=== PATIENT | female | born 1990 | race Caucasian/White ===

== ENCOUNTER 2016-04-26 08:49 | Emergency (ER) | payer SELFPAY ==
[~2016-04-26] VITALS: Ht 162.6 cm; Wt 81.6 kg
--- NOTE | 2016-04-26 08:49 | NUR ---
Patient BIBA and taken to bed 04 via gurney per EMS.
[2016-04-26 08:54] VITALS: BP 112/71
--- NOTE | 2016-04-26 08:54 | NUR ---
PATIENT JAYSHREE PRESENTS TO ED WITH CHRONIC LOW BACK PAIN X2 YRS. TWISTED TODAY AT WORK; DENIES N/V/D; SKIN IS PINK/WARM/DRY; AAOX4 WITH EVEN AND STEADY GAIT; LUNGS CLEAR BL; HR EVEN AND REGULAR; PT DENIES ANY FEVER, CP, SOB, OR COUGH AT THIS TIME; PATIENT STATES PAIN OF 7/10 AT THIS TIME; VSS; PATIENT POSITIONED FOR COMFORT; HOB ELEVATED; BEDRAILS UP X2; BED DOWN. ER MD MADE AWARE OF PT STATUS.
--- NOTE | 2016-04-26 08:57 | NUR ---
DR LONG ASSESSING AAO PT AT BEDSIDE
--- NOTE | 2016-04-26 08:58 | NUR ---
Dr. Lackey evaluating patient at bedside.
[2016-04-26] MEDS ORDERED: HYDROmorphone 1 MG/ML AMP ONE (09:10)
--- NOTE | 2016-04-26 09:12 | NUR ---
1 MG DILAUDED GIVEN IM PER DR LONG'S ORDER LOW BACK PAIN 09/20
--- NOTE | 2016-04-26 09:27 | NUR ---
LOW BACK PAIN IS 4/10 PER PT AFTER DILAUDED
[2016-04-26] MEDS ORDERED: HYDROmorphone 1 MG/ML AMP IM ONE ×2 (09:30→09:50)
--- NOTE | 2016-04-26 09:40 | NUR ---
AAO PT C/O PAIN 12/21 WHEN MOVING TO THE WHEELCHAIR, DR LONG NOTIFIED
[2016-04-26 10:00] VITALS: BP 116/66
--- NOTE | 2016-04-26 10:00 | NUR ---
Patient discharged with v/s stable. Written and verbal after care instructions given and explained. Patient alert, oriented and verbalized understanding of instructions. Wheel Chair Assisted with to car. All questions addressed prior to discharge. ID band removed. Patient advised to follow up with PMD. Rx of NORCO given. Patient educated on indication of medication including possible reaction and side effects. Opportunity to ask questions provided and answered.
== END 2016-04-26 10:00 | disposition home or self-care (01) ==
LOC: MED 08:49
DX: M54.5 Low back pain (principal); G89.29 Other chronic pain
CPT/HCPCS: 96372; 99284; J1170

== ENCOUNTER 2016-07-13 22:35 | Emergency (ER) | payer OTHER ==
[~2016-07-13] VITALS: Ht 162.6 cm; Wt 82.1 kg
[2016-07-13 22:44] VITALS: BP 144/90
--- NOTE | 2016-07-13 23:50 | NUR ---
PT TAKEN TO BED 5
--- NOTE | 2016-07-14 00:21 | NUR ---
PATIENT PRESENTS TO ED WITH C/O TOOTHACHE . PT DENIES N/V/D; SKIN IS PINK/WARM/DRY; AAOX4 WITH EVEN AND STEADY GAIT; LUNGS CLEAR BL; HR EVEN AND REGULAR; PT DENIES ANY FEVER, CP, SOB, OR COUGH AT THIS TIME; PATIENT STATES PAIN OF 10/10 AT THIS TIME; VSS; PATIENT POSITIONED FOR COMFORT; HOB ELEVATED; BEDRAILS UP X2; BED DOWN. ER MD MADE AWARE OF PT STATUS.
--- NOTE | 2016-07-14 00:26 | NUR ---
Dr. Robles evaluating patient at bedside.
[2016-07-14] MEDS ORDERED: KETOROLAC 60 MG/2 ML VIAL IM ONE (00:30)
--- NOTE | 2016-07-14 01:06 | NUR ---
Patient appears to be resting comfortably in bed. Vital Signs within normal limits. Respirations even and unlabored.
[2016-07-14 01:15] VITALS: BP 132/85
--- NOTE | 2016-07-14 01:16 | NUR ---
Patient discharged with v/s stable. Written and verbal after care instructions given and explained. Patient alert, oriented and verbalized understanding of instructions. Ambulatory with to car. All questions addressed prior to discharge. ID band removed. Patient advised to follow up with PMD. Rx of NORCO 5-MG325, MOTRIN 800MG given. Patient educated on indication of medication including possible reaction and side effects. Opportunity to ask questions provided and answered.
== END 2016-07-14 01:16 | disposition home or self-care (01) ==
LOC: MED 22:35
DX: K08.89 Other specified disorders of teeth and supporting structures (principal); F17.200 Nicotine dependence, unspecified, uncomplicated
CPT/HCPCS: 96372; 99283; J1885

== ENCOUNTER 2016-08-27 13:36 | Emergency (ER) | payer OTHER ==
[~2016-08-27] VITALS: Ht 162.6 cm; Wt 81.6 kg
[2016-08-27 13:42] VITALS: BP 118/72
--- NOTE | 2016-08-27 13:47 | NUR ---
Patient ambulated to bed 4. RN evaluating patient at bedside.
--- NOTE | 2016-08-27 13:47 | NUR ---
PT PRESENTS TO ER W/C/O DIARRHEA SINCE THIS AM. PT DENIES ANY MEDICAL HX. DENIES DIARRHEA; SKIN IS PINK/WARM/DRY; AAOX4 WITH EVEN AND STEADY GAIT; LUNGS CLEAR BL; HR EVEN AND REGULAR; PT DENIES ANY FEVER, CP, SOB, OR COUGH AT THIS TIME; PATIENT STATES ABDOMINAL CRAMPING PAIN OF 4/10 AT THIS TIME; VSS; PATIENT POSITIONED FOR COMFORT; HOB ELEVATED; BEDRAILS UP X2; BED DOWN. ER MD MADE AWARE OF PT STATUS.
--- NOTE | 2016-08-27 13:48 | NUR ---
Dr. Carson evaluating patient at bedside.
[2016-08-27] MEDS ORDERED: cefTRIAXone 250 MG in LIDOCAINE 1% ED 0.9 ML IM ONE (14:00)
[2016-08-27] MEDS ORDERED: AZITHROMYCIN 250 MG TAB PO ONE (14:00)
[2016-08-27 14:51] LABS: APPEARANCE,URINE CLEAR (CLEAR); BILIRUBIN,URINE NEGATIVE (NEGATIVE); BLOOD, URINE NEGATIVE (NEGATIVE); COLOR,URINE YELLOW (YELLOW); LEUKOCYTE ESTERASE ,URINE 1+ (NEGATIVE); NITRITE, URINE NEGATIVE (NEGATIVE); PH,URINE 5.5 (5.0-9.0); PROTEIN,URINE NEGATIVE (NEGATIVE); UGLUCOSE NEGATIVE (NEGATIVE); UROBILINOGEN,URINE 0.2 EU/dL (0.2 - 1)
[2016-08-27 15:05] VITALS: BP 104/58
[2016-08-27 15:12] LABS: RBC,URINE 0-3 /HPF (0-5); WBC,URINE 0-5 /HPF (0-5)
[2016-08-27 15:13] LABS: BACTERIA,URINE RARE /HPF (None Seen); SQUAMOUS EPITHELIAL CELL,UR 0-5 /LPF (0-3 (FEW))
[2016-08-31 06:26] LABS: CHLAMYDIA TRACHOMATIS AMP DNA Negative (Negative)
== END 2016-08-27 15:05 | disposition home or self-care (01) ==
LOC: MED 13:36
DX: R19.7 Diarrhea, unspecified (principal); Z20.2 Contact with and (suspected) exposure to infections with a predominantly sexual mode of transmission
CPT/HCPCS: 36415; 81001; 81025; 87086; 87491; 96372; 99284; J0696; J2001

== ENCOUNTER 2016-08-31 08:33 | Emergency (ER) | payer OTHER ==
[~2016-08-31] VITALS: Ht 162.6 cm; Wt 79.6 kg
[2016-08-31 08:42] VITALS: BP 124/66
--- NOTE | 2016-08-31 10:10 | NUR ---
Patient ambulated to bed 8. RN evaluating patient at bedside.
--- NOTE | 2016-08-31 10:15 | NUR ---
26F BIB SELF C/O DIARRHEA X 6 DAYS; PT STATES HAD 3 EPISODES OF DIARRHEA TODAY, BUT STATES NO NAUSEA/VOMITTING AT THIS TIME; ABDOMEN SOFT, NON-TENDER, ACTIVE BOWEL SOUNDS X 4 QUADRANTS. PT NOTED W/ SMALL HEALING ABRASION TO NOSE; NO BLEEDING OR C/O PAIN TO SITE AT THIS TIME; PT STATES NO PAIN AT THIS TIME; PT AA&OX4, PERRLA, BL LUNG SOUNDS CLEAR, RR EVEN/UNLABORED, SKIN IS WARM/DRY AT THIS TIME; PT RESTING IN BED W/ HOB ELEVATED AND IN LOWEST POSITION; POSITIONED FOR COMFORT; ER MD MADE AWARE OF STATUS. WILL CONTINUE TO MONITOR.
--- NOTE | 2016-08-31 10:30 | NUR ---
Note magui in EDM - 08/31/16 at 1032 by LOIS Patient will be admitted to care of DR. FLORES. Admited to TELE. Will go to room 105-A. [facility] list completed. Report to JERROD BARCENAS.
--- NOTE | 2016-08-31 10:41 | NUR ---
ER MD DR. MONTERO EVALUATING PT AT BEDSIDE.
[2016-08-31 10:51] VITALS: BP 115/75
--- NOTE | 2016-08-31 10:51 | NUR ---
Patient discharged with v/s stable. Written and verbal after care instructions given and explained. Patient alert, oriented and verbalized understanding of instructions. Ambulatory with steady gait. All questions addressed prior to discharge. ID band removed. Patient advised to follow up with PMD. Rx of LOMOTIL 2.5MG-0.025MG TAB given. Patient educated on indication of medication including possible reaction and side effects. Opportunity to ask questions provided and answered.
== END 2016-08-31 10:51 | disposition home or self-care (01) ==
LOC: MED 08:34
DX: R19.7 Diarrhea, unspecified (principal)
CPT/HCPCS: 81002; 81025; 99283

== ENCOUNTER 2016-09-05 15:50 | Emergency (ER) | payer OTHER ==
[~2016-09-05] VITALS: Ht 162.6 cm; Wt 77.1 kg
[2016-09-05 15:55] VITALS: BP 128/60
--- NOTE | 2016-09-05 16:46 | NUR ---
PT AMBULATED TO ER BED 06.
[2016-09-05] MEDS ORDERED: NACL 0.9% 1,000 ML IV SCH (16:47)
--- NOTE | 2016-09-05 16:48 | NUR ---
PATIENT PRESENTS TO ED WITH C/O N/D X 7 TODAY, LAST ONE 30 MIN AGO, HAD THE SAME PROBLEMS ON AND OFF FOR 2 WKS;SKIN IS PINK/WARM/DRY; AAOX4 WITH EVEN AND STEADY GAIT; LUNGS CLEAR BL; HR EVEN AND REGULAR; PT DENIES ANY FEVER, CP, SOB, OR COUGH AT THIS TIME; PATIENT STATES PAIN OF 8/10 AT THIS TIME; VSS; PATIENT POSITIONED FOR COMFORT; HOB ELEVATED; BEDRAILS UP X2; BED DOWN.
[2016-09-05] MEDS ORDERED: ONDANSETRON 4 MG/2 ML VIAL IVP ONE (16:50)
[2016-09-05] MEDS ORDERED: DIPHENOXYLATE /ATROPINE 2.5 MG TAB PO ONE (16:50)
[2016-09-05] MEDS ORDERED: NACL 0.9% 1,000 ML IV ONE (16:50)
[2016-09-05 17:17] LABS: BASOPHILS # (AUTO) 0.2 K/uL (0.00-0.22); BASOPHILS % (AUTO) 2.4 % (0.0-2.0); EOSINOPHILS # (AUTO) 0.2 K/uL (0-0.4); EOSINOPHILS % (AUTO) 2.3 % (0.0-4.0); HEMATOCRIT 41.4 % (36-48); HEMOGLOBIN 14.1 g/dL (12.0-16.0); LYMPHOCYTES # (AUTO) 1.2 K/uL (2.5-16.5); LYMPHOCYTES % (AUTO) 13.8 % (20.5-51.1); MEAN CORPUSCULAR HEMOGLOBIN 32 pg (27-31); MEAN CORPUSCULAR HGB CONC 34 g/dL (33-37); MEAN CORPUSCULAR VOLUME 95 fL (80-94); MONOCYTES # (AUTO) 0.4 K/uL (0.8-1.0); MONOCYTES % (AUTO) 5.1 % (1.7-9.3); NEUTROPHILS # (AUTO) 6.4 K/uL (1.8-7.7); NEUTROPHILS % (AUTO) 76.4 % (42.2-75.2); PLATELET COUNT (AUTO) 118 K/uL (140-450); RED BLOOD CELL COUNT(AUTO) 4.37 MIL/uL (4.20-5.40); RED CELL DISTRIBUTION WIDTH 12.3 % (11.6-13.7); WHITE BLOOD COUNT (AUTO) 8.4 K/uL (4.8-10.8)
[2016-09-05 17:29] LABS: ALBUMIN 3.6 g/dL (3.4-5.0); ANION GAP 13.6 (8-16); CALCIUM 8.1 mg/dL (8.5-10.1); CARBON DIOXIDE 23.8 mmol/L (21-32); CREATININE 0.6 mg/dL (0.6-1.3); POTASSIUM 3.4 mmol/L (3.5-5.1); TOTAL BILIRUBIN 0.4 mg/dL (0.0-1.0); TOTAL PROTEIN, SERUM 7.3 g/dL (6.4-8.2)
--- NOTE | 2016-09-05 17:34 | NUR ---
pt sleeping;no acute distress noted;
[2016-09-05 17:52] LABS: APPEARANCE,URINE SL CLOUDY (CLEAR); BILIRUBIN,URINE NEGATIVE (NEGATIVE); BLOOD, URINE 1+ (NEGATIVE); COLOR,URINE YELLOW (YELLOW); LEUKOCYTE ESTERASE ,URINE NEGATIVE (NEGATIVE); NITRITE, URINE NEGATIVE (NEGATIVE); PH,URINE 5.5 (5.0-9.0); PROTEIN,URINE TRACE (NEGATIVE); UGLUCOSE NEGATIVE (NEGATIVE); UROBILINOGEN,URINE 0.2 EU/dL (0.2 - 1)
--- NOTE | 2016-09-05 18:03 | NUR ---
PT RESTING ON BED;MALORIE FERMÍNE DISTRESS NOTED;WILL CONTINUE TO MONITOR PT.
[2016-09-05 18:22] LABS: RBC,URINE 3-10 (FEW) /HPF (0-5)
[2016-09-05 18:23] LABS: BACTERIA,URINE 1+ /HPF (None Seen); SQUAMOUS EPITHELIAL CELL,UR >10 (MANY) /LPF (0-3 (FEW))
--- NOTE | 2016-09-05 18:40 | NUR ---
Patient discharged with v/s stable. Written and verbal after care instructions given and explained. Patient alert, oriented and verbalized understanding of instructions. Ambulatory with steady gait. All questions addressed prior to discharge. ID band removed. Patient advised to follow up with PMD. Rx of FLAGYL,TYLENOL AND BENTYL given. Patient educated on indication of medication including possible reaction and side effects. Opportunity to ask questions provided and answered.
[2016-09-05 18:42] VITALS: BP 116/62
== END 2016-09-05 18:40 | disposition home or self-care (01) ==
LOC: MED 15:50
DX: A08.4 Viral intestinal infection, unspecified (principal); Z71.6 Tobacco abuse counseling
CPT/HCPCS: 36415; 80053; 81001; 81025; 82150; 83690; 85025; 87086; 89055; 96361; 96374; 99284; J2405; J7030

== ENCOUNTER 2016-12-23 05:40 | Emergency (ER) | payer OTHER ==
[~2016-12-23] VITALS: Ht 162.6 cm; Wt 80.7 kg
[2016-12-23 05:45] VITALS: BP 114/66
--- NOTE | 2016-12-23 05:50 | NUR ---
PT TAKEN TO BED 5
--- NOTE | 2016-12-23 05:55 | NUR ---
26 Y/F PT. PRESENTS TO W/C/O R UPPER ABD PAIN/NAUSEA/AND SORETHROAT X 45 MINUTES AGO. NO MED HX. AAO X4, AMBULATORY WITH STEADY GAIT. RESPIRATIONS ROOM AIR, EVEN AND UNLABORED. BL LUNG CLEAR. SKIN WARM AND DRY. ABDOMEN SOFT AND NON-TENDER. C/O PAIN 08/21. VSS, ER MADE AWARE OF PT. STATUS.
--- NOTE | 2016-12-23 05:57 | NUR ---
Patient being evaluated by DR. OVIEDO at bedside.
[2016-12-23 06:09] VITALS: BP 110/70
--- NOTE | 2016-12-23 06:09 | NUR ---
Patient discharged with v/s stable. Written and verbal after care instructions given and explained. Patient alert, oriented and verbalized understanding of instructions. Ambulatory with steady gait. All questions addressed prior to discharge. ID band removed. Patient advised to follow up with PMD. Rx of AMOXICILLING 500 MG, DEXTROMETHORPHAN/PROMETHAZINE 15 MG/6.25MG/5ML given. Patient educated on indication of medication including possible reaction and side effects. Opportunity to ask questions provided and answered.
== END 2016-12-23 06:09 | disposition home or self-care (01) ==
LOC: MED 05:40
DX: J02.8 Acute pharyngitis due to other specified organisms (principal); B96.89 Other specified bacterial agents as the cause of diseases classified elsewhere; F17.210 Nicotine dependence, cigarettes, uncomplicated
CPT/HCPCS: 99283

== ENCOUNTER 2017-06-02 16:45 | Emergency (ER) | payer OTHER ==
[~2017-06-02] VITALS: Ht 165.1 cm; Wt 80.4 kg
[2017-06-02 16:52] VITALS: BP 105/44
--- NOTE | 2017-06-02 16:57 | NUR ---
PT AMBULATES TO BED 12
--- NOTE | 2017-06-02 17:01 | NUR ---
PATIENT PRESENTS TO ED WITH C/O PAIN WHEN URINATION, ITCHING SOMETIMES, DENIES DISCHARGE, ABDOMINAL CRAMPING RADIATING TO BACK. PATIENT STATES PAIN OF 7/10 AT THIS TIME; VSS; PATIENT POSITIONED FOR COMFORT; HOB ELEVATED; BEDRAILS UP X2; BED DOWN. ER MD MADE AWARE OF PT STATUS.
[2017-06-02 17:20] VITALS: BP 105/44
--- NOTE | 2017-06-02 17:20 | NUR ---
Patient discharged with v/s stable. Written and verbal after care instructions given and explained. Patient alert, oriented and verbalized understanding of instructions. Ambulatory with steady gait. All questions addressed prior to discharge. ID band removed. Patient advised to follow up with PMD. Rx of PYRIDIUM AND MACRODANTIN given. Patient educated on indication of medication including possible reaction and side effects. Opportunity to ask questions provided and answered.
--- NOTE | 2017-06-04 12:23 | NUR ---
patient ua culture returned as e coli, sent home on macro bid shows as suseptable to macrobid.
== END 2017-06-02 17:20 | disposition home or self-care (01) ==
LOC: MED 16:45
DX: R30.9 Painful micturition, unspecified (principal)
CPT/HCPCS: 81002; 81025; 87086; 87186; 99283; 99284

== ENCOUNTER 2017-06-05 20:18 | Emergency (ER) | payer OTHER ==
[~2017-06-05] VITALS: Ht 162.6 cm; Wt 80.7 kg
[2017-06-05 20:28] VITALS: BP 115/65
--- NOTE | 2017-06-05 20:35 | NUR ---
PATIENT AMBULATED TO ER BED 2.
--- NOTE | 2017-06-05 20:40 | NUR ---
Marzena kilgore in [facility] - 06/05/17 at 2048 by MEDDCV PATIENT AMBULATED TO ER BED 2.
--- NOTE | 2017-06-05 20:42 | NUR ---
PATIENT IS A 26 Y/O FEMALE WHO PRESENTS TO THE ED C/O VAGINAL BLEEDING. PT STATES THAT SHE STARTED CONTROL AND WAS ADVISED TO COME TO ER IF BLEEDING OCCURED. PT REPORTS 5/10 CRAMPING VAGINAL PAIN THAT DOES NOT RADIATE. PT DENIES CP, SOB, N/V/D. PT AAOX4, RR EVEN/UNLABORED. PT REPOSITIONED FOR COMFORT, BED IN LOWEST POSITION. ER MD BROCK SECIST NOTIFIED. WILL CONTINUE TO MONITOR.
--- NOTE | 2017-06-05 21:30 | NUR ---
Dr. Roy evaluating patient.
[2017-06-05 22:04] VITALS: BP 121/72
--- NOTE | 2017-06-05 22:04 | NUR ---
Patient discharged with v/s stable. Written and verbal after care instructions given and explained. Patient verbalized understanding. Pt advised to continued prescribed antiobiotic. Ambulatory with steady gait. All questions addressed prior to discharge. Advised to follow up with PMD.
== END 2017-06-05 22:04 | disposition home or self-care (01) ==
LOC: MED 20:18
DX: N39.0 Urinary tract infection, site not specified (principal); N93.9 Abnormal uterine and vaginal bleeding, unspecified; F17.210 Nicotine dependence, cigarettes, uncomplicated
CPT/HCPCS: 81002; 81025; 99283

== ENCOUNTER 2017-07-06 11:02 | Emergency (ER) | payer OTHER ==
[~2017-07-06] VITALS: Ht 162.6 cm; Wt 79.4 kg
[2017-07-06 11:09] VITALS: BP 120/67
--- NOTE | 2017-07-06 11:10 | NUR ---
PATIENT AMBULATED TO [facility].
--- NOTE | 2017-07-06 11:13 | NUR ---
PT C/O BACK PAIN, DENIES INJURY, STATES HE PCP ALREADY HAS HER REFERED TO A SPECIALIST. PT IS REQUESTING SOMETHING FOR PAIN WHILE WAITNG FOR SPECIALTY. STATES SHE HAS A "CHIPPED DISK." NAD NOTED/STATED OTHERWISE. NORMAL GAIT TO CHAIR C
[2017-07-06 11:38] VITALS: BP 120/67
--- NOTE | 2017-07-06 11:39 | NUR ---
Patient discharged with v/s stable. Written and verbal after care instructions given and explained. Patient alert, oriented and verbalized understanding of instructions. Ambulatory with steady gait. All questions addressed prior to discharge. ID band removed. Patient advised to follow up with PMD. Rx of NAPROSYN, NORCO given. Patient educated on indication of medication including possible reaction and side effects. Opportunity to ask questions provided and answered.
== END 2017-07-06 11:39 | disposition home or self-care (01) ==
LOC: MED 11:02
DX: G89.29 Other chronic pain (principal); M54.5 Low back pain; M51.86 Other intervertebral disc disorders, lumbar region
CPT/HCPCS: 99283